=== PATIENT | female | born 1980 | race Caucasian/White ===

== ENCOUNTER 2018-08-03 19:11 | Emergency (ER) | payer BC ==
[2018-08-03] MEDS ORDERED: HYDROCODONE/ACETAMINOPHEN 7.5-325 MG TABLET PO ONE (20:45)
[2018-08-03] MEDS ORDERED: ONDANSETRON 4 MG TAB.RAPDIS PO ONE (20:48)
--- NOTE | 2018-08-03 20:48 | ER Document Report ---
ED Medical Screen (RME) - General Chief Complaint: Head Injury Stated Complaint: FALL/HEAD INJURY Time Seen by Provider: 08/03/18 20:13 Notes: Patient is a 38-year-old female presents to the emergency department after tripping and falling down approximately 10 stairs. Patient states she did hit the right side of her head on the wall and/or the doorway. Patient's did witness the fall and is unsure if the patient has any loss of consciousness. Patient states she is also unsure if she passed out. states he called her name and she initially did not answer but it took him time to get down the stairs due to furniture being in the way. Patient's denying any vomiting but is complaining of generalized headache and right wrist pain. Patient states in January 2016 she had a traumatic brain injury with a severe concussion. States she continues with migraines and continues outpatient OT and PT for that brain injury. Past medical history: Traumatic brain injury versus concussion, migraines Medications: Motrin, Fioricet Allergies: Clindamycin, sulfa, tetracycline Patient states last menstrual period was July 07, 2018. GENERAL: Alert, interacts well. No acute distress. HEAD: Normocephalic, atraumatic. EYES: Pupils equal, round, and reactive to light. Extraocular movements intact. NECK: Full range of motion. Supple. Trachea midline. Pt stated she feels nauseated with palpation of C-spine EXTREMITIES: Moves all 4 extremities spontaneously. normal radial and dorsalis pedis pulses bilaterally. Swelling noted right distal upper extremity. NEUROLOGICAL: Alert and oriented x3. Normal speech. [cranial nerves II through XII grossly intact]. I have greeted and performed a rapid initial assessment of this patient. A comprehensive ED assessment and evaluation of the patient, analysis of test results and completion of the medical decision making process will be conducted by additional ED providers. TRAVEL OUTSIDE OF THE [place] IN LAST 30 DAYS: No - Related Data Allergies/Adverse Reactions: clindamycin Allergy (Verified 08/03/18 20:16) Sulfa (Sulfonamide Antibiotics) Allergy (Verified 08/03/18 20:16) tetracycline Allergy (Verified 08/03/18 20:16) Past Medical History - Social History Chew tobacco use (# tins/day): No Drug Abuse: None Renal/ Medical History: Denies: Hx Peritoneal Dialysis Physical Exam - Vital signs Vitals: Temp Pulse Resp BP Pulse Ox 98.6 F 87 17 136/75 H 99 08/03/18 20:15 08/03/18 20:15 08/03/18 20:15 08/03/18 20:15 08/03/18 20:15 Course - Vital Signs Vital signs: Temp Pulse Resp BP Pulse Ox 98.6 F 87 17 136/75 H 99 08/03/18 20:15 08/03/18 20:15 08/03/18 20:15 08/03/18 20:15 08/03/18 20:15
--- NOTE | 2018-08-03 21:36 | RADIOLOGY REPORT (SQ) ---
EXAM DESCRIPTION: XR FOREARM 2 VIEWS COMPLETED DATE/TME: 08/03/2018 20:44 CLINICAL HISTORY: 38 years, Female, fall, pain, swelling Findings: There is a mildly impacted and comminuted distal radius fracture with mild dorsal displacement. Fracture is intra-articular. No radiocarpal dislocation. IMPRESSION: Comminuted distal radius fracture.
--- NOTE | 2018-08-03 21:47 | RADIOLOGY REPORT (SQ) ---
CT BRAIN AND CERVICAL SPINE WITHOUT IV CONTRAST HISTORY: Trauma. COMPARISON: None. TECHNIQUE: CT scan of the brain and cervical spine without IV contrast. This exam was performed according to our departmental dose-optimization program, which includes automated exposure control, adjustment of the mA and/or kV according to patient size and/or use of iterative reconstruction technique. FINDINGS: BRAIN: The ventricles, cisterns, and sulci are age-appropriate. No focal white matter lesions are seen. The lewis-white matter differentiation is preserved without evidence of acute territorial infarction. No intracranial hemorrhage, midline shift, or extra-axial fluid collection is identified. No air-fluid levels are seen in the paranasal sinuses. The calvarium is intact. CERVICAL SPINE: No acute fracture is seen. No prevertebral soft tissue swelling. There is straightening of the normal cervical lordosis, which may be due to cervical collar, muscle spasm, or patient positioning. The vertebral body heights and disc spaces are preserved. No advanced spinal canal stenosis is identified. IMPRESSION: 1. No acute intracranial abnormality. 2. No acute fracture or listhesis of the cervical spine.
--- NOTE | 2018-08-04 00:31 | ER Document Report ---
ED General - General Mode of Arrival: Ambulatory Information source: Patient TRAVEL OUTSIDE OF THE [place] IN LAST 30 DAYS: No <KAREN JEFFERSON - Last Filed: 08/04/18 03:47> <ANNA LOREDO - Last Filed: 08/04/18 06:54> - General Chief Complaint: Head Injury Stated Complaint: FALL/HEAD INJURY Time Seen by Provider: 08/03/18 20:13 Notes: Patient is a 38 year old female with a history of a TBI presents to the emergency department complaining of right wrist pain secondary a mechanical trip and fall. Patient states that she was helping her boyfriend move a mattress when she proceeded to fall head over heels down 8-10 steps and proceeded to hit her head against a wall and land on her right wrist. Patient also states she has some difficulty remembering the accident further stating "everything is blurry". Patient states she did have numbness and tingling in her extremities but she states it is almost completely resolved. She also complains of increased fatigue. She denies loss of consciousness, vomiting or blurry vision. Patient states she lives in [place] where she is currently following up with a post concussion and memory specialist following her TBI. (KAREN JEFFERSON) - Related Data Allergies/Adverse Reactions: clindamycin Allergy (Verified 08/03/18 20:16) Sulfa (Sulfonamide Antibiotics) Allergy (Verified 08/03/18 20:16) tetracycline Allergy (Verified 08/03/18 20:16) Past Medical History - General Information source: Patient - Social History Smoking Status: Never Smoker Chew tobacco use (# tins/day): No Drug Abuse: None Family History: Reviewed & Not Pertinent Patient has suicidal ideation: No Patient has homicidal ideation: No Traumatic Medical History: Reports: Hx Traumatic Brain Injury <KAREN JEFFERSON - Last Filed: 08/04/18 03:47> Review of Systems - Review of Systems Constitutional: No symptoms reported EENT: No symptoms reported Cardiovascular: No symptoms reported Respiratory: No symptoms reported Gastrointestinal: No symptoms reported Genitourinary: No symptoms reported Female Genitourinary: No symptoms reported Musculoskeletal: See HPI Skin: No symptoms reported Hematologic/Lymphatic: No symptoms reported Neurological/Psychological: See HPI, Confusion -: Yes All other systems reviewed and negative <KAREN JEFFERSON - Last Filed: 08/04/18 03:47> Physical Exam <KAREN JEFFERSON - Last Filed: 08/04/18 03:47> - Vital signs Vitals: Temp Pulse Resp BP Pulse Ox 98.6 F 87 17 136/75 H 99 08/03/18 20:15 08/03/18 20:15 08/03/18 20:15 08/03/18 20:15 08/03/18 20:15 - Notes Notes: GENERAL: Alert, interacts well. No acute distress. HEAD: Normocephalic, atraumatic. Patient complains of shooting pains when bending head her downwards. EYES: Pupils equal, round, and reactive to light. Extraocular movements intact. ENT: Oral mucosa moist, tongue midline. NECK: Full range of motion. Supple. Trachea midline. Midline bony tenderness to palpation around C5. LUNGS: Clear to auscultation bilaterally, no wheezes, rales, or rhonchi. No respiratory distress. HEART: Regular rate and rhythm. No murmurs, gallops, or rubs. ABDOMEN: Soft, non-tender. Non-distended. Bowel sounds present in all 4 quadrants. EXTREMITIES: Moves all 4 extremities spontaneously. Right distal radial is tender to palpation and swollen, no obvious signs of deformities, sensations intact. NEUROLOGICAL: Alert and oriented x3. Normal speech. PSYCH: Normal affect, normal mood. SKIN: Warm, dry, normal turgor. No rashes or lesions noted. (RONNYKAREN) Course <ANNA LOREDO - Last Filed: 08/04/18 06:54> - Re-evaluation Re-evalutation: 08/04/18 01:49 Patient cannot be clinically ruled out given her tenderness to palpation of the midline bony spine was so a cervical spine CT scan was ordered. Patient could not be clinically ruled out for intracranial hemorrhage due to neurologic changes including intermittent paresthesias and feeling confused afterwards. Also high risk mechanism as she fell more than 5 feet. Forearm x-ray shows comminuted, mildly impacted and mildly dorsally angulated distal radius fracture of the right distal radius, CT scan of the head and neck are unremarkable. Patient was placed in a sugar tong splint, given head injury precautions and discharged home. 08/04/18 06:53 (ANNA LOREDO) - Vital Signs Vital signs: Temp Pulse Resp BP Pulse Ox 98.6 F 87 13 108/69 99 08/03/18 20:15 08/03/18 20:15 08/04/18 00:01 08/04/18 00:01 08/04/18 00:01 Procedures - Immobilization right wrist Pre-Proc Neuro Vasc Exam: Normal Immobilizer type: Sugar tong Performed by: RN, PCT Post-Proc Neuro Vasc Exam: Normal, Unchanged from pre-exam Alignment checked and good: Yes <ANNA LOREDO - Last Filed: 08/04/18 06:54> Discharge <KAREN JEFFERSON - Last Filed: 08/04/18 03:47> <ANNA LOREDO - Last Filed: 08/04/18 06:54> - Discharge Clinical Impression: Distal radius fracture, right Qualifiers: Encounter type: initial encounter Fracture type: closed Fracture morphology: Cristóbal' Qualified Code(s): S52.531A - Colles' fracture of right radius, initial encounter for closed fracture Closed head injury Qualifiers: Encounter type: initial encounter Qualified Code(s): S09.90XA - Unspecified injury of head, initial encounter Condition: Stable Disposition: HOME, SELF-CARE Additional Instructions: Head Injury Precautions At this point, there is no evidence that your head injury is serious. Observation is necessary, however. Take only clear liquids for the first few hours, unless told otherwise by the doctor. If no pain medication was prescribed, you may take acetaminophen according to the directions on the bottle. Do not take any medication that may alter your level of alertness (unless you've discussed it with the doctor first). Limit activity for the first 24 hours. Bed rest is best. During the first 24 hours, check to see approximately every two to three hours that the patient is easily arousable, responds normally, and can perform common tasks such as walking without difficulty. Contact your doctor or go to the hospital if any of the following things occur: Persistent vomiting, difficulty in arousing the patient, worsening or continued headache, or failure to improve as expected. Head injuries can cause symptoms that persist for a few days or even a few weeks. Fractured Radius The bone called the radius is fractured. This type of fracture is typically caused by falling onto the outstretched hand. The fracture is not serious, however, and should heal well with adequate protection. Your physician's evaluation shows the bone is in good position to heal. A cast or splint is used to protect the fracture. For the first few days after the injury, the arm should be elevated and ice packed. Healing takes from three to eight weeks, depending on the age of the patient and the seriousness of the fracture. Your doctor has explained the treatment plan. It's important that you follow up as instructed to prevent complications. Call the doctor or return at once if severe pain or swelling occur, or if the hand becomes numb, swollen, or discolored. Prescriptions: Ondansetron [Zofran Odt 4 mg Tablet] 1 - 2 tab PO Q4HP PRN #10 tab.rapdis PRN Reason: Hydrocodone/Acetaminophen [[place] 5-325 mg Tablet] 1 tab PO Q6HP PRN #10 tablet PRN Reason: Forms: Parent Work Note Scribe Attestation: 08/04/18 06:54 I personally performed the services described in the documentation, reviewed and edited the documentation which was dictated to the scribe in my presence, and it accurately records my words and actions. (ANNA LOREDO) Scribe Documentation - Scribe Written by Nasreen:: Nasreen Alcantara, 08/04/2018 01:02 acting as scribe for :: Lachelle <KAREN JEFFERSON - Last Filed: 08/04/18 03:47>
[2018-08-04 00:53] VITALS: BP 108/69
[2018-08-04] MEDS ORDERED: ONDANSETRON ODT 4 MG TAB (6 TAB/ER DISP) PO PRN (02:01)
[2018-08-04] MEDS ORDERED: HYDROCODONE/ACETAMINOPHEN 5-325 MG (6 TAB/ER DISP) PO PRN (02:01)
[2018-08-04] MEDS ORDERED: KETOROLAC TROMETHAMINE 60 MG/2 ML SDV IM ONE (02:06)
== END 2018-08-04 02:18 | disposition home or self-care (01) ==
LOC: ER 19:11
DX: S52.531A Colles' fracture of right radius, initial encounter for closed fracture (principal); S09.90XA Unspecified injury of head, initial encounter; W10.9XXA Fall (on) (from) unspecified stairs and steps, initial encounter; Y93.89 Activity, other specified; R53.83 Other fatigue; R41.3 Other amnesia; R41.0 Disorientation, unspecified; Z87.820 Personal history of traumatic brain injury; Z88.1 Allergy status to other antibiotic agents; Z88.2 Allergy status to sulfonamides
CPT/HCPCS: 99284; 73090; 70450; 72125; 29125; J1885; S0119